=== PATIENT | male | born 1990 | race African-American/Black ===

== ENCOUNTER 2017-03-23 15:15 | Emergency (ER) | payer SELFPAY ==
--- NOTE | 2017-03-23 15:44 | ER Document Report ---
ED Medical Screen (RME) - General Chief Complaint: Urinary Problem Stated Complaint: BLOOD IN URINE Mode of Arrival: Ambulatory Information source: Patient Notes: This is a 26-year-old male who presents for evaluation of blood in his urine. He states that he felt fine today but that at about 1300 he urinated and noticed that he passed a blood clot. He had no dysuria. He has had no flank pain today but a few days ago had mild right-sided lower abdominal pain. He denies nausea or vomiting. He has no current pain at this time. He has been tolerating PO without difficulty and just ate lunch today. No prior history of hematuria. No history of kidney stones. Denies trauma recently. Denies testicular pain or swelling. I have greeted and performed a rapid initial assessment of this patient. A comprehensive ED assessment and evaluation of the patient, analysis of test results and completion of the medical decision making process will be conducted by additional ED providers. TRAVEL OUTSIDE OF THE [place] IN LAST 30 DAYS: No - Related Data Allergies/Adverse Reactions: No Known Drug Allergies Allergy (Verified 02/22/14 14:52) Past Medical History Neurological Medical History: Reports: Hx Migraine, Hx Seizures Renal/ Medical History: Denies: Hx Peritoneal Dialysis Psychiatric Medical History: Reports: Hx Depression - Immunizations Immunizations up to date: Yes Hx Diphtheria, Pertussis, Tetanus Vaccination: No - "unknown" stated by pt Physical Exam - Vital signs Vitals: Temp Pulse Resp BP Pulse Ox 98.3 F 76 16 118/67 100 03/23/17 15:19 03/23/17 15:19 03/23/17 15:19 03/23/17 15:19 03/23/17 15:19 Course - Vital Signs Vital signs: Temp Pulse Resp BP Pulse Ox 98.4 F 70 16 107/63 100 03/23/17 18:08 03/23/17 18:08 03/23/17 18:08 03/23/17 18:08 03/23/17 18:08 - Laboratory Result Diagrams: 03/23/17 16:00 03/23/17 16:00 Laboratory results interpreted by me: 03/23/17 03/23/17 03/23/17 16:00 16:00 16:25 WBC 3.9 L Glucose 69 L Total Bilirubin 1.5 H Urine Blood SMALL H Doctor's Discharge - Discharge Clinical Impression: Hematuria, Depression Condition: Stable Disposition: HOME, SELF-CARE Instructions: Dehydration ([facility]), Depression ([facility]), Hematuria ([facility]) Additional Instructions: Your labs were normal today except your urine showing you are dehydrated You may have passed a small stone which may cause some bleeding Push the fluids, water preferrably You have contracted for safety, which means you agree not to harm yourself and if you have any suicidal thoughts, you agree to return to ER for further evaluation. Referrals: COREY VELEZ MD [NO LOCAL MD] - Follow up as needed LENA GUARDADO PSYD [ALLIED HEALTH PROFESSIONAL] - Follow up as needed
[2017-03-23 16:14] LABS: ABSOLUTE LYMPHOCYTES (AUTO) 1.1 10^3/uL (0.5-4.7); ABSOLUTE MONOCYTES (AUTO) 0.4 10^3/uL (0.1-1.4); ABSOLUTE NEUT (AUTO) 2.3 10^3/uL (1.7-8.2); BASOPHILS % (AUTO) 0.8 % (0-2); EOSINOPHILS % (AUTO) 1.1 % (0-6); HEMATOCRIT 43.4 % (37.9-51.0); HEMOGLOBIN 14.3 g/dL (13.5-17.0); HGB HCT DIFFERENCE -0.5; LYMPHOCYTES % (AUTO) 28.8 % (13-45); MEAN CORPUSCULAR HEMOGLOBIN 31.9 pg (27.0-33.4); MEAN CORPUSCULAR VOLUME 97 fl (80-97); MONOCYTES % (AUTO) 10.2 % (3-13); RED BLOOD COUNT 4.49 10^6/uL (4.35-5.55); RED CELL DISTRIBUTION WIDTH 13.3 % (11.5-14.0); SEGMENTED NEUTROPHILS % (AUTO) 59.1 % (42-78); WHITE BLOOD COUNT 3.9 10^3/uL (4.0-10.5)
[2017-03-23 16:28] LABS: ALANINE AMINOTRANSFERASE 27 U/L (21-72); ALBUMIN 4.3 g/dL (3.5-5.0); ALKALINE PHOSPHATASE 75 U/L (38-126); ANION GAP 12 (5-19); ASPARTATE AMINO TRANSFERASE 33 U/L (17-59); BILIRUBIN,DIRECT 0.1 mg/dL (0.0-0.4); BILIRUBIN,TOTAL 1.5 mg/dL (0.2-1.3); BLOOD UREA NITROGEN 13 mg/dL (7-20); CALCIUM 9.9 mg/dL (8.4-10.2); CARBON DIOXIDE 30 mmol/L (22-30); CHLORIDE 102 mmol/L (98-107); CREATININE RESULT 0.78 mg/dL (0.52-1.25); GLUCOSE 69 mg/dL (75-110); POTASSIUM 3.9 mmol/L (3.6-5.0); SODIUM 144.1 mmol/L (137-145); TOTAL PROTEIN 7.8 g/dL (6.3-8.2)
[2017-03-23 16:44] LABS: APPEARANCE,URINE CLEAR; BILIRUBIN,URINE NEGATIVE (NEGATIVE); GLUCOSE, URINE NEGATIVE (NEGATIVE); KETONES,URINE NEGATIVE (NEGATIVE); LEUKOCYTE ESTERASE,URINE NEGATIVE (NEGATIVE); NITRITE,URINE NEGATIVE (NEGATIVE); PROTEIN,URINE NEGATIVE (NEGATIVE); URINE SPECIFIC GRAVITY 1.035; UROBILINOGEN,URINE NEGATIVE mg/dL (<2.0)
--- NOTE | 2017-03-23 17:12 | ER Document Report ---
ED GI/ - General Chief Complaint: Urinary Problem Stated Complaint: BLOOD IN URINE Mode of Arrival: Ambulatory Notes: 26 yo male presents today c/o passing a blood clot today. denies dysuria. admits to lower abdominal discomfort yesterday. + nausea. no vomiting or fever. no penile or testicular pain during the history, patient admits to feeling depressed and has occasional suicidal thoughts. denies suicidal ideations presently. "Today is a good day" . Pt reqeusts to "talk to someone". TRAVEL OUTSIDE OF THE [place] IN LAST 30 DAYS: No - HPI Patient complains to provider of: Hematuria Onset: Just prior to arrival Timing/Duration: Sudden Quality of pain: No pain Sexual history: Active Associated symptoms: Nausea Exacerbated by: Denies Relieved by: Denies - Related Data Allergies/Adverse Reactions: No Known Drug Allergies Allergy (Verified 02/22/14 14:52) Past Medical History - General Information source: Patient - Social History Smoking Status: Never Smoker Chew tobacco use (# tins/day): No Frequency of alcohol use: Occasional Drug Abuse: None Family History: Reviewed & Not Pertinent - Medical History Medical History: Negative Neurological Medical History: Reports: Hx Migraine, Hx Seizures - none since 2013 Renal/ Medical History: Denies: Hx Peritoneal Dialysis Psychiatric Medical History: Reports: Hx Depression Surgical Hx: Negative - Immunizations Immunizations up to date: Yes Hx Diphtheria, Pertussis, Tetanus Vaccination: No - "unknown" stated by pt Review of Systems - Review of Systems Constitutional: No symptoms reported EENT: No symptoms reported Cardiovascular: No symptoms reported Respiratory: No symptoms reported Gastrointestinal: No symptoms reported Genitourinary: See HPI, Hematuria. denies: Dysuria, Discharge, Frequency Male Genitourinary: denies: Testicular pain, Penile discharge Musculoskeletal: No symptoms reported Skin: No symptoms reported Hematologic/Lymphatic: No symptoms reported Neurological/Psychological: Depression, Suicidal ideation Physical Exam - Vital signs Vitals: Temp Pulse Resp BP Pulse Ox 98.3 F 76 16 118/67 100 03/23/17 15:19 03/23/17 15:19 03/23/17 15:19 03/23/17 15:19 03/23/17 15:19 Interpretation: Normal - General General appearance: Appears well, Alert - HEENT Head: Normocephalic, Atraumatic Eyes: Normal Pupils: PERRL - Respiratory Respiratory status: No respiratory distress Chest status: Nontender Breath sounds: Normal Chest palpation: Normal - Cardiovascular Rhythm: Regular Heart sounds: Normal auscultation Murmur: No - Abdominal Inspection: Normal Distension: No distension Bowel sounds: Normal Tenderness: Tender - mild suprapubic tenderness Organomegaly: No organomegaly - Genitourinary Inspection: Normal. No: Blood at meatus, Penile discharge Tenderness: Nontender Scrotum: Normal - Back Back: Normal, Nontender - Extremities General upper extremity: Normal inspection, Nontender, Normal color, Normal ROM , Normal temperature General lower extremity: Normal inspection, Nontender, Normal color, Normal ROM , Normal temperature, Normal weight bearing. No: Nicole's sign - Neurological Neuro grossly intact: Yes Cognition: Normal Orientation: AAOx4 [place] Coma Scale Eye Opening: Spontaneous [place] Coma Scale Verbal: Oriented [place] Coma Scale Motor: Obeys Commands Ernesto Coma Scale Total: 15 Speech: Normal Motor strength normal: LUE, RUE, LLE, RLE Sensory: Normal - Psychological Associated symptoms: Normal affect, Normal mood - Skin Skin Temperature: Warm Skin Moisture: Dry Skin Color: Normal Course - Re-evaluation Re-evalutation: 03/23/17 17:00 labs are unremarkable urine, small blood, SG 1032 all results reviewed with patient. pt may have passed a small stone. NAD, no sign of infection or torsion. pt is able to orally hydrate. 03/23/17 17:25 pt requesting to speak to psych regarding depression and suicidal thoughts "since Im here". will put in psych consult 03/23/17 17:53 psych not on premise for rest of the evening. pt does not want to stay overnight to wait on consult. pt contracts for safety. lives with and 2 children, family at beside and agree with safety contract. pt agrees to return to ER for any increase in suicidal thoughts. pt has normal affect, good eye contact, very cooperative. Laughing with at bedside. will give patient number for out patient follow up - Vital Signs Vital signs: Temp Pulse Resp BP Pulse Ox 98.3 F 76 16 118/67 100 03/23/17 15:19 03/23/17 15:19 03/23/17 15:19 03/23/17 15:19 03/23/17 15:19 - Laboratory Result Diagrams: 03/23/17 16:00 03/23/17 16:00 Laboratory results interpreted by me: 03/23/17 03/23/17 03/23/17 16:00 16:00 16:25 WBC 3.9 L Glucose 69 L Total Bilirubin 1.5 H Urine Blood SMALL H Discharge - Discharge Clinical Impression: Hematuria Depression Qualifiers: Depression Type: unspecified Qualified Code(s): F32.9 - Major depressive disorder, single episode, unspecified Condition: Stable Disposition: HOME, SELF-CARE Instructions: Hematuria ([facility]), Depression ([facility]), Dehydration ([facility]) Additional Instructions: Your labs were normal today except your urine showing you are dehydrated You may have passed a small stone which may cause some bleeding Push the fluids, water preferrably You have contracted for safety, which means you agree not to harm yourself and if you have any suicidal thoughts, you agree to return to ER for further evaluation. Referrals: LENA GUARDADO PSYD [ALLIED HEALTH PROFESSIONAL] - Follow up as needed COREY VELEZ MD [NO LOCAL MD] - Follow up as needed
[2017-03-23 18:11] VITALS: BP 107/63
== END 2017-03-23 18:08 | disposition home or self-care (01) ==
LOC: ER 15:15
DX: R31.9 Hematuria, unspecified (principal); R11.0 Nausea; F32.9 Major depressive disorder, single episode, unspecified
CPT/HCPCS: 36415; 80053; 81001; 85025; 99283

== ENCOUNTER → 2018-12-05 | Outpatient (CLI) | payer SELFPAY ==
--- NOTE | 2018-12-05 15:36 | RADIOLOGY REPORT (SQ) ---
EXAM DESCRIPTION: CHEST 2 VIEWS COMPLETED DATE/TIME: 12/05/2018 3:27 pm REASON FOR STUDY: R05 COUGH COMPARISON: None. EXAM PARAMETERS: NUMBER OF VIEWS: two views TECHNIQUE: Digital Frontal and Lateral radiographic views of the chest acquired. RADIATION DOSE: NA LIMITATIONS: none FINDINGS: LUNGS AND PLEURA: Streaky densities in the lung bases, right greater than left. MEDIASTINUM AND HILAR STRUCTURES: No masses or contour abnormalities. HEART AND VASCULAR STRUCTURES: Heart normal size. No evidence for failure. BONES: No acute findings. HARDWARE: None in the chest. OTHER: No other significant finding. IMPRESSION: STREAKY DENSITIES IN THE LUNG BASES MAY BE DUE TO ATELECTASIS VERSUS DEVELOPING INFILTRA TE. TECHNICAL DOCUMENTATION: JOB ID: [id number] [employer]- All Rights Reserved Reading location - IP/workstation name: [email or web address]
== END ==
LOC: RAD 14:37
PROVIDERS: ATTEND Family Medicine
DX: J98.4 Other disorders of lung (principal); R05 Cough
CPT/HCPCS: 71046

== ENCOUNTER → 2018-12-08 | Outpatient (CLI) | payer SELFPAY | LOC: LAB 15:22 | PROVIDERS: ATTEND Internal Medicine Pulmonary Disease | DX: Z11.1 Encounter for screening for respiratory tuberculosis (principal) | CPT/HCPCS: 36415; 87015; 87116; 87206 ==